=== PATIENT | female | born 1975 | race Hispanic/Latino ===

== ENCOUNTER 2018-10-15 07:14 | Day surgery (SDC) | payer BC, SELFPAY ==
--- OUTSIDE RECORDS SUMMARY | 2018-10-15 07:21 | XMS REPORT ---
:1975 Author Organization eClinicalWorks Care Team Providers Name Role Phone Arya Roxana Provider Role Unavailable Allergies No Known Allergies Problems Problem Type Condition Code Onset Dates Condition Status Problem Vitamin D deficiency E55.9 Active Problem Abnormal thyroid function test R94.6 Active Problem Seasonal allergic rhinitis, J30.2 Active unspecified trigger Problem Hypercholesterolemia E78.00 Active Problem Anemia, unspecified type D64.9 Active Problem Prediabetes R73.03 Active Medications No Known Medications Results No Known Results Summary Purpose eClinicalWorks Submission
--- OUTSIDE RECORDS SUMMARY | 2018-10-15 07:21 | XMS REPORT ---
:1975 Author Organization e[employer]Works Care Team Providers Name Role Phone Arya Roxana Provider Role Unavailable Allergies, Adverse Reactions, Alerts Substance Reaction Event Type penicillin Info Not Available Drug Allergy Amoxicillin Info Not Available Drug Allergy Problems Problem Type Condition Code Onset Dates Condition Status Problem Hypercholesterolemia E78.00 Active Assessment Prediabetes R73.03 Active Problem Prediabetes R73.03 Active Assessment Hypercholesterolemia E78.00 Active Medications Medication Code Code Instructions Start End Status Dosage System Date Date Metamucil [facility] 83548843982 0.52 GM Orally Active 2 capsules Three times a with 8 day ounces of liquid Pravastatin [facility] 59760599418 40 MG Orally Active 1 tablet Sodium Once a day Atorvastatin [facility] 64993377710 10 MG Orally Active 1 tablet Calcium Once a day Biotin [facility] 73252218865 1 MG Orally Active not defined Ferrous Sulfate ND 0 Active not CR defined Phenergan [facility] 14622712544 25 MG/ML Active 1 ml as Injection needed Azithromycin [facility] 55327884221 250 MG Orally Active 2 tablets Once a day on the first day, then 1 tablet daily for 4 days Claritin [facility] [address]-60 Active not defined Multivitamin & ND 47931191356 - Orally Active not Mineral defined Results No Known Results Summary Purpose eClinicalWorks Submission
--- OUTSIDE RECORDS SUMMARY | 2018-10-15 07:21 | XMS REPORT ---
:1975 Author Organization [employer]Works Care Team Providers Name Role Phone Darío Roxana Provider Role Unavailable Allergies No Known Allergies Problems Problem Type Condition Code Onset Dates Condition Status Problem Prediabetes R73.03 Active Problem Hypercholesterolemia E78.00 Active Problem Seasonal allergic rhinitis, J30.2 Active unspecified trigger Medications No Known Medications Results No Known Results Summary Purpose eClinicalWorks Submission
--- OUTSIDE RECORDS SUMMARY | 2018-10-15 07:21 | XMS REPORT ---
:1975 Author Organization e[employer]Works Care Team Providers Name Role Phone Roxana Chanel Provider Role Unavailable Allergies, Adverse Reactions, Alerts Substance Reaction Event Type penicillin Info Not Available Drug Allergy Problems Problem Type Condition Code Onset Dates Condition Status Problem Prediabetes R73.03 Active Problem Hypercholesterolemia E78.00 Active Problem Seasonal allergic rhinitis, J30.2 Active unspecified trigger Assessment Dysuria R30.0 Active Medications Medication Code Code Instructions Start End Status Dosage System Date Date Multivitamin & [facility] 31085019557 - Orally Active not Mineral defined Atorvastatin [facility] 55593056649 10 MG Orally Active 1 tablet Calcium Once a day Atorvastatin [facility] 47601170411 10 MG Orally January 03, Active 1 tablet Calcium Once a day 2017 Phenergan [facility] 90838074861 25 MG/ML Active 1 ml as Injection needed Biotin [facility] 80778973188 1 MG Orally Active not defined Bactrim DS [facility] 89185936809 800-160 MG March 18, Active 1 tablet Orally Twice a 2018 day Pravastatin [facility] 49748746620 40 MG Orally Active 1 tablet Sodium Once a day Claritin [facility] [address]-30 Active not defined Azithromycin [facility] 68884689000 250 MG Orally Active 2 tablets Once a day on the first day, then 1 tablet daily for 4 days Metamucil [facility] 32406086901 0.52 GM Orally Active 2 capsules Three times a with 8 day ounces of liquid Ferrous Sulfate ND 0 Active not CR defined Results Name Result Date Reference Range Unit Abnormality Flag URINALYSIS AUTO W/O SCOPE (83400) ----ANABELLA Trace [id number] ----NIT Negative [id number] ----PROTEIN Negative [id number] ----pH 7.0 [id number] ----GLUCOSE Negative [id number] ----KETONES Negative [id number] ----SPECIFIC GRAVITY 1.020 [id number] ----BLO Negative [id number] Urine Microscopic Reflex Summary Purpose eClinicalWorks Submission
--- OUTSIDE RECORDS SUMMARY | 2018-10-15 07:21 | XMS REPORT ---
:1975 Author Organization eClinicalWorks Care Team Providers Name Role Phone Roxana Koenig Provider Role Unavailable Allergies No Known Allergies Problems Problem Type Condition Code Onset Dates Condition Status Problem Hypercholesterolemia E78.00 Active Problem Prediabetes R73.03 Active Medications Medication Code Code Instructions Start End Status Dosage System Date Date Metamucil [facility] 88516236603 0.52 GM Orally Active 2 capsules Three times a with 8 day ounces of liquid Ferrous Sulfate NDC 0 Active not CR defined Phenergan [facility] 15210709891 25 MG/ML Active 1 ml as Injection needed Pravastatin [facility] 63817486483 40 MG Orally Active 1 tablet Sodium Once a day Biotin [facility] 67777193952 1 MG Orally Active not defined Atorvastatin [facility] 24473210603 10 MG Orally Active 1 tablet Calcium Once a day Azithromycin [facility] 69833219466 250 MG Orally Active 2 tablets Once a day on the first day, then 1 tablet daily for 4 days Atorvastatin [facility] 67758763140 10 MG Orally January 03, Active 1 tablet Calcium Once a day 2017 Claritin [facility] [address]-63 Active not defined Multivitamin & ND 90553578660 - Orally Active not Mineral defined Results No Known Results Summary Purpose eClinicalWorks Submission
--- OUTSIDE RECORDS SUMMARY | 2018-10-15 07:21 | XMS REPORT ---
:1975 Author Organization eClinicalWorks Care Team Providers Name Role Phone Roxana Koenig Provider Role Unavailable Allergies, Adverse Reactions, Alerts Substance Reaction Event Type penicillin Info Not Available Drug Allergy Problems Problem Type Condition Code Onset Dates Condition Status Problem Prediabetes R73.03 Active Problem Hypercholesterolemia E78.00 Active Problem Seasonal allergic rhinitis, J30.2 Active unspecified trigger Assessment URI, acute J06.9 Active Assessment Acute pharyngitis, unspecified J02.9 Active etiology Medications Medication Code Code Instructions Start End Status Dosage System Date Date Bactrim DS [facility] 66189184563 800-160 MG March 18, Active 1 tablet Orally Twice a 2017 day Claritin [facility] [address]-08 Active not defined Phenergan [facility] 89462981122 25 MG/ML Active 1 ml as Injection needed Pravastatin [facility] 41042920389 40 MG Orally Active 1 tablet Sodium Once a day Metamucil [facility] 33891655519 0.52 GM Orally Active 2 capsules Three times a with 8 day ounces of liquid Multivitamin & [facility] 17464760135 - Orally Active not Mineral defined Atorvastatin [facility] 22419704562 10 MG Orally Active 1 tablet Calcium Once a day Azithromycin ND 67007758358 250 MG Orally 2 March 19February Active as tablets on day 2017, directed #1, then 1 2018 tablet once daily thereafter Azithromycin ND 41691846674 250 MG Orally Active 2 tablets Once a day on the first day, then 1 tablet daily for 4 days Atorvastatin ND 68725114882 10 MG Orally January 03, Active 1 tablet Calcium Once a day 2018 Ferrous Sulfate NDC 0 Active not CR defined Biotin ND 20137836031 1 MG Orally Active not defined Results Name Result Date Reference Range Unit Abnormality Flag STREP A RAPID ----Result Negative [id number] Summary Purpose eClinicalWorks Submission
[2018-10-15 07:42] LABS: Specific Gravity 1.025 (1.005-1.030)
[2018-10-15] MEDS ORDERED: Ringers Lactate 1,000 ML IV ONE (07:51)
[2018-10-15] MEDS ORDERED: FENTANYL CITR 100 MCG/2 ML ONE (09:06)
[2018-10-15] MEDS ORDERED: PROPOFOL 200 MG/20 ML VIAL IV ONE ×2 (09:06→10:09)
[2018-10-15] MEDS ORDERED: MIDAZOLAM HCL 2 MG/2 ML INJ ONE (09:07)
[2018-10-15] MEDS: LIDOCAINE 1.5% W/EPI AMP 5 ML ONE ×2 (09:07→10:03)
[2018-10-15] MEDS ORDERED: LIDOCAINE 1% MPF 2 ML AMPULE ONE (09:08)
[2018-10-15] MEDS ORDERED: NA CHLORIDE 0.9% 1,000 ML ONE (09:08)
[2018-10-15] MEDS ORDERED: SILVER NITRATE 1 APPL TOP ONE (09:08)
[2018-10-15] MEDS ORDERED: LIDOCAINE 1.5% W/EPI AMP 5 ML ONE (09:33)
[2018-10-15] MEDS ORDERED: KETOROLAC 30 MG/ML INJ ONE (10:19)
--- NOTE | 2018-10-15 21:12 | OP ---
Date of Procedure: 10/15/2018 Surgeon: Brisa Maldonado MD Preoperative Diagnoses: Menorrhagia, dysmenorrhea, and left adnexal mass. Postoperative Diagnoses: Menorrhagia, dysmenorrhea, and left adnexal mass. Procedures Performed: Hysteroscopy, dilation and curettage. Anesthesia: MAC plus paracervical block. Specimens: Endometrial curettings. Complications: No complications. Drains: None. Condition: Stable. Findings: Endometrium significantly thickened. No intracavitary lesions. Both tubal ostia were vis ualized. Cavity undistorted, slightly retroflexed. Description Of Procedure: After informed consent was verified, the patient was taken back to the OR, placed in a supine fashion on the table. After MAC was given, she was placed in a dorsal lithotomy position using Phoenix stirrups. Pelvic exam performed. Uterus is about 8 weeks size and fullness not ed above the level of the uterus. No distinct mass was palpable. The cul-de-sac assessment was smoo th. Speculum was used to expose the cervix. Anterior lip injected with 1.5% lidocaine mixed with 1: 200,000 epinephrine, 7 cc was injected here. Anterior lip grasped with 2 Allis clamps and speculum p laced in the posterior aspect still and at 4 and 8 o'clock positions, 3 cc each was injected for a pa racervical block. A prep x3 with Betadine was done. SlimLine diagnostic hysteroscope was used to en ter the uterine cavity through the cervical canal under direct vision. The cavity was empty. Thicke krishan endometrium. No intracavitary lesions. Scope pulled out. A #2 endometrial curette used to perf orm curettings and there was a large amount of tissue that was obtained. This was sent out for perma nent pathology. Instruments were removed. Instrument, needle, and sponge counts were done and were correct at the end of the case. The patient tolerated the procedure well. She will follow up with stephanie nolan in 1 week. Estimated Blood Loss: Minimal. RANDY/RAMIRO Voice ID: [id number] Report ID: [id number]
== END 2018-10-15 11:05 | disposition home or self-care (01) ==
LOC: OR 07:14
PROVIDERS: ATTEND Obstetrics & Gynecology
PROC: 0UJD8ZZ Inspection of Uterus and Cervix, Via Natural or Artificial Opening Endoscopic (ICD-10-PCS; 2018-10-15)
PROC: 0UDB7ZX Extraction of Endometrium, Via Natural or Artificial Opening, Diagnostic (ICD-10-PCS; principal; 2018-10-15 09:30)
DX: N92.0 Excessive and frequent menstruation with regular cycle (principal); N94.6 Dysmenorrhea, unspecified; D50.0 Iron deficiency anemia secondary to blood loss (chronic); R10.2 Pelvic and perineal pain; N83.292 Other ovarian cyst, left side; E78.00 Pure hypercholesterolemia, unspecified; Z79.899 Other long term (current) drug therapy
CPT/HCPCS: 81025; 83001; 86304; 88305; J2001; J2250; J2704; J3010; J7030

== ENCOUNTER 2018-12-04 06:00 | Day surgery (SDC) | payer BC, SELFPAY ==
[2018-12-01 11:45] LABS: Urine Appearance CLEAR; Urine Bilirubin NEGATIVE (NEG); Urine Blood 3+ (NEG); Urine Color YELLOW; Urine Glucose NEGATIVE (NEG); Urine Protein NEGATIVE (NEG); Urine Urobilinogen 0.2 mg/dL (0.2-1.0)
[2018-12-01 11:51] LABS: Urine Microscopic Reflex ORDER UMIC
[2018-12-01 11:52] LABS: Absolute Lymphocytes (CBC) 3.3 K/uL (0.7-4.9); Absolute Monocytes 0.6 K/uL (0.1-1.3); Absolute Neutrophil 3.4 K/uL (1.8-8.0); Basophils % 0.7 % (0-1.3); Eosinophils % 2.4 % (0-4.4); Hematocrit 40.6 % (36.0-45.0); MPV 8.5 fL (7.6-11.3); RBC Red Blood Cell Count 4.84 M/uL (3.86-4.86)
[2018-12-01 12:04] LABS: Urine Bacteria <20 /HPF (<20); Urine Culture Reflex Order NOT NEEDED; Urine RBC TNTC /HPF (NONE SEEN)
--- OUTSIDE RECORDS SUMMARY | 2018-12-04 06:02 | XMS REPORT ---
:1975 Author Organization eClinicalWorks Care Team Providers Name Role Phone Roxana Koenig Provider Role Unavailable Allergies No Known Allergies Problems Problem Type Condition Code Onset Dates Condition Status Problem Hypercholesterolemia E78.00 Active Problem Prediabetes R73.03 Active Medications Medication Code Code Instructions Start End Status Dosage System Date Date Metamucil [facility] 10508474827 0.52 GM Orally Active 2 capsules Three times a with 8 day ounces of liquid Ferrous Sulfate NDC 0 Active not CR defined Phenergan [facility] 94279613396 25 MG/ML Active 1 ml as Injection needed Pravastatin [facility] 97009680131 40 MG Orally Active 1 tablet Sodium Once a day Biotin [facility] 57273323069 1 MG Orally Active not defined Atorvastatin [facility] 38240962552 10 MG Orally Active 1 tablet Calcium Once a day Azithromycin [facility] 43829835165 250 MG Orally Active 2 tablets Once a day on the first day, then 1 tablet daily for 4 days Atorvastatin [facility] 35303450114 10 MG Orally January 03, Active 1 tablet Calcium Once a day 2017 Claritin [facility] [address]-65 Active not defined Multivitamin & ND 35556488225 - Orally Active not Mineral defined Results No Known Results Summary Purpose eClinicalWorks Submission
--- OUTSIDE RECORDS SUMMARY | 2018-12-04 06:02 | XMS REPORT ---
[...] Dosage System Date Date Metamucil [facility] 00932655170 0.52 GM Orally Active 2 capsules Three times a with 8 day ounces of liquid Pravastatin [facility] 90911500703 40 MG Orally Active 1 tablet Sodium Once a day Atorvastatin [facility] 92458463906 10 MG Orally Active 1 tablet Calcium Once a day Biotin [facility] 90848262690 1 MG Orally Active not defined Ferrous Sulfate ND 0 Active not CR defined Phenergan [facility] 55957383588 25 MG/ML Active 1 ml as Injection needed Azithromycin [facility] 54943053665 250 MG Orally Active 2 tablets Once a day on the first day, then 1 tablet daily for 4 days Claritin [facility] [address]-33 Active not defined Multivitamin & ND 05736135124 - Orally Active not Mineral defined Results No Known Results Summary Purpose eClinicalWorks Submission
--- OUTSIDE RECORDS SUMMARY | 2018-12-04 06:02 | XMS REPORT ---
[...] Status Dosage System Date Date Multivitamin & [facility] 46570312289 - Orally Active not Mineral defined Atorvastatin [facility] 46782771118 10 MG Orally Active 1 tablet Calcium Once a day Atorvastatin [facility] 18882512605 10 MG Orally January 03, Active 1 tablet Calcium Once a day 2017 Phenergan [facility] 89041724946 25 MG/ML Active 1 ml as Injection needed Biotin [facility] 54333982391 1 MG Orally Active not defined Bactrim DS [facility] 81637798856 800-160 MG March 18, Active 1 tablet Orally Twice a 2018 day Pravastatin [facility] 38644549658 40 MG Orally Active 1 tablet Sodium Once a day Claritin [facility] [address]-90 Active not defined Azithromycin [facility] 86870840693 250 MG Orally Active 2 tablets Once a day on the first day, then 1 tablet daily for 4 days Metamucil [facility] 96680092049 0.52 GM Orally Active 2 capsules Three times a with 8 day ounces of liquid Ferrous Sulfate ND 0 Active not CR defined Results Name Result Date Reference Range Unit Abnormality Flag URINALYSIS AUTO W/O SCOPE (99254) ----ANABELLA Trace [id number] ----NIT Negative [id number] ----PROTEIN Negative [id number] ----pH 7.0 20180318 ----GLUCOSE Negative [id number] ----KETONES Negative [id number] ----SPECIFIC GRAVITY 1.020 20180318 ----BLO Negative [id number] Urine Microscopic Reflex Summary Purpose eClinicalWorks Submission
--- OUTSIDE RECORDS SUMMARY | 2018-12-04 06:03 | XMS REPORT ---
[...] Date Bactrim DS [facility] 49620317902 800-160 MG March 18, Active 1 tablet Orally Twice a 2017 day Claritin [facility] [address]-76 Active not defined Phenergan [facility] 92698594835 25 MG/ML Active 1 ml as Injection needed Pravastatin [facility] 17290874083 40 MG Orally Active 1 tablet Sodium Once a day Metamucil [facility] 78031087943 0.52 GM Orally Active 2 capsules Three times a with 8 day ounces of liquid Multivitamin & [facility] 22838457076 - Orally Active not Mineral defined Atorvastatin [facility] 47203626724 10 MG Orally Active 1 tablet Calcium Once a day Azithromycin ND 03463625596 250 MG Orally 2 March 19February Active as tablets on day 2017, directed #1, then 1 2018 tablet once daily thereafter Azithromycin ND 47627336843 250 MG Orally Active 2 tablets Once a day on the first day, then 1 tablet daily for 4 days Atorvastatin ND 30665186671 10 MG Orally January 03, Active 1 tablet Calcium Once a day 2018 Ferrous Sulfate NDC 0 Active not CR defined Biotin ND 53501225204 1 MG Orally Active not defined Results Name Result Date Reference Range Unit Abnormality Flag STREP A RAPID ----Result Negative [id number] Summary Purpose eClinicalWorks Submission
--- OUTSIDE RECORDS SUMMARY | 2018-12-04 06:03 | XMS REPORT ---
:1975 Author Organization eClinicalWorks Care Team Providers Name Role Phone Roxana Koenig Provider Role Unavailable Allergies, Adverse Reactions, Alerts Substance Reaction Event Type penicillin hives Drug Allergy Problems Problem Type Condition Code Onset Dates Condition Status Assessment Hypercholesterolemia E78.00 Active Assessment Prediabetes R73.03 Active Assessment URI, acute J06.9 Active Assessment Vitamin D deficiency E55.9 Active Assessment Abnormal thyroid function test R94.6 Active Problem Vitamin D deficiency E55.9 Active Problem Abnormal thyroid function test R94.6 Active Problem Seasonal allergic rhinitis, J30.2 Active unspecified trigger Problem Hypercholesterolemia E78.00 Active Problem Anemia, unspecified type D64.9 Active Problem Prediabetes R73.03 Active Medications Medication Code Code Instructions Start End Status Dosage System Date Date Biotin [facility] 39365909230 1 MG Orally Active not defined Bactrim DS [facility] 69700728133 800-160 MG March 18, Active 1 tablet Orally Twice a 2018 day Azithromycin [facility] 32316177169 250 MG Orally Active 2 tablets Once a day on the first day, then 1 tablet daily for 4 days Pravastatin [facility] 99062347457 40 MG Orally Active 1 tablet Sodium Once a day Claritin [facility] [address]-30 Active not defined Multivitamin & [facility] 70118974799 - Orally Active not Mineral defined Atorvastatin [facility] 57175747214 10 MG Orally January 03, Active 1 tablet Calcium Once a day 2017 Atorvastatin [facility] 29575878073 10 MG Orally Active 1 tablet Calcium Once a day Phenergan [facility] 40116126182 25 MG/ML Active 1 ml as Injection needed Metamucil [facility] 04930589639 0.52 GM Orally Active 2 capsules Three times a with 8 day ounces of liquid Ferrous Sulfate NDC 0 Active not CR defined Results No Known Results Summary Purpose eClinicalWorks Submission
[2018-12-04] MEDS ORDERED: Ringers Lactate 1,000 ML IV ONE ×2 (06:19→10:32)
[2018-12-04] MEDS ORDERED: SCOPOLAMINE HYDROBROMIDE PATCH TD ONE (06:19)
[2018-12-04 06:36] LABS: Specific Gravity 1.015 (1.005-1.030)
[2018-12-04] MEDS ORDERED: ROCURONIUM 50 MG/5 ML VIAL IV ONE (07:17)
[2018-12-04] MEDS ORDERED: PROPOFOL 200 MG/20 ML VIAL IV ONE (07:17)
[2018-12-04] MEDS ORDERED: DEXAMETHASONE 10 MG/ML VIAL ONE (07:18)
[2018-12-04] MEDS ORDERED: MIDAZOLAM HCL 2 MG/2 ML INJ ONE (07:18)
[2018-12-04] MEDS ORDERED: LIDOCAINE 2% MPF 5 ML VIAL ONE (07:18)
[2018-12-04] MEDS ORDERED: FENTANYL CITR 250 MCG/5 ML ONE (07:18)
[2018-12-04] MEDS ORDERED: ONDANSETRON 4 MG/2 ML VIAL ONE (07:18)
[2018-12-04] MEDS: CEFAZOLIN/SWI 2gm 2 GM/20 ML SYR ONE ×2 (07:20→07:40)
[2018-12-04] MEDS: Ringers Lactate 1,000 ML IV ONE ×2 (08:47→08:50)
[2018-12-04] MEDS ORDERED: FENTANYL CITR 100 MCG/2 ML ONE (10:05)
[2018-12-04] MEDS ORDERED: KETOROLAC 30 MG/ML INJ ONE (10:08)
[2018-12-04] MEDS ORDERED: IBUPROFEN 200 MG TAB PO ONE (12:16)
[2018-12-04] MEDS ORDERED: IBUPROFEN 400 MG TAB ONE (12:17)
--- NOTE | 2018-12-04 21:42 | OP ---
Date of Procedure: 12/04/2018 Surgeon: Brisa Maldonado MD Pulling Unit Floorhand: Helene Carson. Preoperative Diagnoses: Menorrhagia, dysmenorrhea, left adnexal mass, most likely left ovarian. Postoperative Diagnoses: Menorrhagia, dysmenorrhea, right tubal mass that was cystic. Procedures Performed: Total laparoscopic hysterectomy, bilateral salpingectomy, removal of right tub al mass, pelvic washings, bilateral ovariopexy, and cystoscopy. Anesthesia: General endotracheal. Specimens: Uterus, bilateral tubes, cyst from the right tube that was removed using an EndoCatch bag after being aspirated while the mass was inside the bag and the bag was almost closed when this was done. So uterus, bilateral tubes, mass on the right tube were the specimens. Complications: None. Drains: None. Condition: Stable. Findings: The mass that is about 6 cm was present on the right tube arising from the distal aspect o f the right tube. The fimbriated end was distorted and present on top of the cystic mass. It could be possible that this mass was arising from the area in between the fimbriated end and the ovary. Th e ovary was completely free from the mass. So, the tube was removed first, then the mass was removed . The right tube and ovary were completely unremarkable excepting that both tubes were interrupted f rom her history of tubal ligation. Indications For Procedure: The patient is a 43-year-old with heavy bleeding, originally with anemia. Then, she had improvement with her anemia after treatment. We did an ultrasound on her uterus. Sh e had a left adnexal mass and this appeared to be un-resolving. She had intermittent left-sided pain , bleeding was not controlled with any conservative measures including using Provera. Discussed abou t treatment in the snf with the help of medical treatment. She had an endometrial sampling and since this was no atypia or malignancy, we talked about medical treatment with ablation in conjuncti on with ovarian cystectomy. However, the other option was to perform a hysterectomy with cystectomy. Given the fact that she has more than 1 pathology, the patient wanted to have her uterus out as wel l at this time and the cyst removed, so consented her for laparoscopic hysterectomy, left salpingo-oo phorectomy, and right salpingectomy, if the mass was on the right ovary, we wanted to preserve her ho rmonal function as she is young, and she has no other problems. Her CA-125 was 7, which is normal. No other family history significant for uterine, ovarian, breast or colon cancer. She is 5, para 4, all vaginal deliveries. After consenting here, she was brought to the OR. Description Of Procedure: After informed consent was verified, she was taken back to OR, placed in a supine fashion on the operating table. After general anesthesia was given, she was given 2 g of Anc ef, which were pushed. No evidence of any allergic reaction. SCDs were placed. Arms were tucked by the side. The patient placed in dorsal lithotomy using Phoenix stirrups. Abdomen, vulva, vagina, and perineum were prepped and draped in a sterile fashion. Isabel was placed to drain the bladder and at tached to cysto tubing for retrograde filling and a large VCare was fixed in place. After this was draped, a 1 cm infraumbilical incision was made with a scalpel. There was a lot of sc ar tissue here, and this was incised with a knife and once the fascia was down, then the fascia was i ncised with a knife as well. A 15-blade tagged on each side with 0 Vicryl sutures, was done satisfac tory on the left half of the fascial incision, so plan was to later put a otzsrr-hs-qszum and close i t. The peritoneum was entered bluntly, S retractors placed. Lashon introduced into the peritoneal cavit y. After site of entry was checked, upper abdominal surfaces were visualized, no evidence of any lesions on the liver or in the upper abdomen. Omentum normal. Appendix was visualized and was normal. The adnexal mass appeared to be coming from the left, however, after placing the suprapubic 10 mm and 5 mm left lower quadrant ports, moving the mass aside, I realized that this was from the distal part of the right tube with the area between the right ovary and the right tube. So, plan was to remove the tube and so the ovary, and then remove the cyst. After thorough inspection of the entire pelvic cav ity, no evidence of any endometriosis, both ureteric courses were visualized from the pelvic brim to the ureteric tunnel and were undistorted. We started the dissection by opening of the bladder perito neum in the center and using scissors to dissect on both sides. Bipolar medium tip was used for caut erization of the vessels. The EnSeal device was opened up. The left round ligament was taken down. Then, the peritoneum was o pened up anteriorly and the broad ligament as well. These were all taken down to the level of the ve ssels. Then the clean-out was done in the area of the anterior vaginal wall with the EnSeal. Then, went on to take the mesosalpinx and the left utero-ovarian ligament. Posterior broad ligament was di ssected with the help of the [place] and then cauterized and cut with the EnSeal, all the way to th e distal part of the uterosacral attachment to the apex. On the opposite side, similar dissection wa s performed after skeletonizing the vessels on the left opposite side. The utero-ovarian ligament wa s taken down the mesosalpinx, and tube were taken down. The round ligament was taken down, then the posterior broad ligament all the way to the left until the right uterosacral was taken down. The bro ad ligament was skeletonized with the help of EnSeal. Then, the anterior vaginal wall was cleared of f, vesicovaginal space was entered with the help of the monopolar hook blade, and then the dissection was carried inferiorly. Once the bladder was pushed adequately then we went on to expose the vessel s on the right side. With the help of the monopolar, incision was made parallel and medial to the ve ssels, contiguous to the cervix at the level of the internal os. Here, the bipolar basket tip was us ed to cauterize the vessels in 2 places, and then with the help of the EnSeal was cauterized and cut. Then the cardinal ligaments were also taken down. This was a little hard with the EnSeal; however, this was cauterized with the bipolar basket tip and then cut with scissors. On the opposite side, s imilar dissection was performed taking the vessels down with the help of the bipolar basket to cauter ize then the EnSeal to cauterize, cut. There was an area on the anterior vaginal wall at the level o f the bladder pillar on the left side, but more on the anterior vaginal wall, there was probably a va ginal branch that was bleeding. After dissecting the bladder pillar and pushing it inferiorly past t he cup of the VCare, I was able to control the bleeding on the anterior vaginal wall with the help of the bipolar medium tip. Once this was cauterized, then vessels were taken down with the help of the basket first, and then the EnSeal to cut it. The cardinal ligaments were also taken down with the E nSeal after making a window medially. Circumferential colpotomy was performed with a monopolar hook blade posteriorly. The area between the vaginal wall and the peritoneum was what was bleeding, and t his was cauterized after thorough irrigation and suction with the help of the medium tipped bipolar. Once there was excellent hemostasis all around, no evidence of any electrical, mechanical, or therma l injury to the ureters, then we placed an angle stitch on the left side, then on the right side, and there were simple stitches tied lateral to the angles. Then 3 buryhzh-cg-wodqy were placed through at the areas of the detachment, 1 in the center and 1 each on each side including the distal uterosac ral ligament with the posterior vaginal wall and anterior vaginal wall, and tying it in a buried figu re-of-eight fashion. All these 3 stitches were acyqkwt-mt-qzrpc and they were placed to support as w ell as close the vaginal opening (colpotomy). After good closure was done, thorough irrigation and s uction were performed, the tubes were removed and handed out for permanent pathology. The ovaries we re left alone. However, due to the traction from the large right tubal mass, the ovarian pedicle teodora eared to be elongated excessively, and this could have the ovary scar on top of the colpotomy site, a nd therefore, I decided to perform an ovariopexy. There was a similar dissection issue on the left s chuy as well; however, I thought that it would be beneficial for her ovary to be attached to the dista l part of the dissected round ligament. The 3-0 Vicryl on an SH needle was used and the lower pole o f the ovary was sutured to the lower part of the round ligament with a simple stitch and tied extraco rporeally. Same thing on the right side was done as well. The bowel was retracted with the help of the epiploicae, which were sutured with 3-0 Monocryl and held on the retractor in the left upper quad rant. The retrieval of these suture tips were with the Ke[place], and placed through the left upper quadrant. This was released at the end of the case and there was no evidence of any excessive trauma or traction to the bowel. After this was released, thorough irrigation and suction performed. No evidence of any problems. Then, the trocars were removed after the gas was desufflated. The fa scia at the umbilicus was closed with the help of a fnnzdu-vo-djonn in a buried fashion, then simple 0 Vicryl stitch in the suprapubic area as well on the fascia. Then all skin incisions closed with th e help of 4-0 Vicryl interrupted. The VCare ball, Isabel were removed. Cystoscopy was performed with a 17-Bolivian sheath, 30-degree lens, and normal saline. There were excellent streams of urine from b oth ureteric orifices. No evidence of any trauma to the bladder. No lesions as well. The bladder w as then drained after both of them were well visualized. The vagina was cleaned up. Instrument, nee dle, and sponge counts were done and were correct at the end of the case. The patient tolerated the procedure well. The right tubal cyst was placed in an EndoCatch bag through the suprapubic port, and it was aspirated with the laparoscopic needle before the bag was closed because this specimen would not fit into the 10 mm bag. Once it was drained without any spillage, then I was able to retrieve it , we then closed the bag completely and pull it through the vagina. Please note, pelvic washings wer e also performed at the beginning. Instrument, needle, and sponge counts x3 were correct at the end of the case. The patient tolerated the procedure well. EBL was 100. She will follow up with me in 1 week. RANDY/RAMIRO Voice ID: [id number] Report ID: [id number]
== END 2018-12-04 12:24 | disposition home or self-care (01) ==
LOC: OR 06:00
PROVIDERS: ATTEND Obstetrics & Gynecology
PROC: 0UT74ZZ Resection of Bilateral Fallopian Tubes, Percutaneous Endoscopic Approach (ICD-10-PCS; 2018-12-04)
PROC: 0UQ24ZZ Repair Bilateral Ovaries, Percutaneous Endoscopic Approach (ICD-10-PCS; 2018-12-04)
PROC: 0UT94ZZ Resection of Uterus, Percutaneous Endoscopic Approach (ICD-10-PCS; principal; 2018-12-04 07:30)
DX: N92.0 Excessive and frequent menstruation with regular cycle (principal); N80.0 Endometriosis of uterus; N88.8 Other specified noninflammatory disorders of cervix uteri; D25.9 Leiomyoma of uterus, unspecified; D27.0 Benign neoplasm of right ovary; N83.8 Other noninflammatory disorders of ovary, fallopian tube and broad ligament; D50.0 Iron deficiency anemia secondary to blood loss (chronic); N94.6 Dysmenorrhea, unspecified; E78.5 Hyperlipidemia, unspecified; Z79.899 Other long term (current) drug therapy
CPT/HCPCS: 36415; 81003; 81015; 81025; 85025; 86850; 86900; 86901; 88108; 88305; 88307; J0690; J1100; J2250; J2405; J2704; J3010

== ENCOUNTER 2019-03-17 14:01 | Emergency (ER) | payer BC, SELFPAY ==
--- OUTSIDE RECORDS SUMMARY | 2019-03-17 14:06 | XMS REPORT ---
[...] Status Dosage System Date Date Multivitamin & [facility] 23714086358 - Orally Active not Mineral defined Atorvastatin [facility] 96472337387 10 MG Orally Active 1 tablet Calcium Once a day Atorvastatin [facility] 99049605685 10 MG Orally January 03, Active 1 tablet Calcium Once a day 2017 Phenergan [facility] 81344615198 25 MG/ML Active 1 ml as Injection needed Biotin [facility] 39358904804 1 MG Orally Active not defined Bactrim DS [facility] 17722486502 800-160 MG March 18, Active 1 tablet Orally Twice a 2018 day Pravastatin [facility] 12739651788 40 MG Orally Active 1 tablet Sodium Once a day Claritin [facility] [address]-67 Active not defined Azithromycin [facility] 88565736053 250 MG Orally Active 2 tablets Once a day on the first day, then 1 tablet daily for 4 days Metamucil [facility] 58746926393 0.52 GM Orally Active 2 capsules Three times a with 8 day ounces of liquid Ferrous Sulfate ND 0 Active not CR defined Results Name Result Date Reference Range Unit Abnormality Flag URINALYSIS AUTO W/O SCOPE (59021) ----ANABELLA Trace [id number] ----NIT Negative [id number] ----PROTEIN Negative [id number] ----pH 7.0 [id number] ----GLUCOSE Negative [id number] ----KETONES Negative [id number] ----SPECIFIC GRAVITY 1.020 [id number] ----BLO Negative [id number] Urine Microscopic Reflex Summary Purpose [employer] Submission
--- OUTSIDE RECORDS SUMMARY | 2019-03-17 14:07 | XMS REPORT ---
:1975 Author Organization [employer] Care Team Providers Name Role Phone Roxana Chanel Provider Role Unavailable Allergies No Known Allergies Problems Problem Type Condition Code Onset Dates Condition Status Problem Prediabetes R73.03 Active Problem Vitamin D deficiency E55.9 Active Problem Abnormal thyroid function test R94.6 Active Problem Hypercholesterolemia E78.00 Active Problem Gestational diabetes O24.419 Active Problem Viral infection, unspecified B34.9 Active Problem Prediabetes R73.09 Active Problem Seasonal allergic rhinitis, J30.2 Active unspecified trigger Problem Anemia, unspecified type D64.9 Active Problem Fever, unspecified fever cause R50.9 Active Problem Acute erythematous tonsillitis J03.90 Active Medications Medication Code Code Instructions Start End Date Status Dosage System Date Azithromycin [facility] [place] 19671596231 250 MG Orally February 11, February 16, Active 2 tablets Once a day 2018 2018 on the first day, then 1 tablet daily for 4 days Results No Known Results Summary Purpose [employer] Submission
--- OUTSIDE RECORDS SUMMARY | 2019-03-17 14:07 | XMS REPORT ---
[...] End Status Dosage System Date Date Biotin [facility] 07552291620 1 MG Orally Active not defined Bactrim DS [facility] 99649918690 800-160 MG March 18, Active 1 tablet Orally Twice a 2018 day Azithromycin [facility] 23951360626 250 MG Orally Active 2 tablets Once a day on the first day, then 1 tablet daily for 4 days Pravastatin [facility] 00619170760 40 MG Orally Active 1 tablet Sodium Once a day Claritin [facility] [address]-28 Active not defined Multivitamin & [facility] 83658878777 - Orally Active not Mineral defined Atorvastatin [facility] 75028187593 10 MG Orally January 03, Active 1 tablet Calcium Once a day 2017 Atorvastatin [facility] 39811529703 10 MG Orally Active 1 tablet Calcium Once a day Phenergan [facility] 67047730981 25 MG/ML Active 1 ml as Injection needed Metamucil [facility] 49414998192 0.52 GM Orally Active 2 capsules Three times a with 8 day ounces of liquid Ferrous Sulfate NDC 0 Active not CR defined Results No Known Results Summary Purpose [employer] Submission
--- OUTSIDE RECORDS SUMMARY | 2019-03-17 14:07 | XMS REPORT ---
:1975 Author Organization [employer]Works Care Team Providers Name Role Phone Nida Curtis Provider Role Unavailable Allergies No Known Allergies [...] Problem Acute erythematous tonsillitis J03.90 Active Medications No Known Medications Results No Known Results Summary Purpose [employer] Submission
--- OUTSIDE RECORDS SUMMARY | 2019-03-17 14:07 | XMS REPORT ---
[...] Status Dosage System Date Date Bactrim DS [facility] 78945702163 800-160 MG March 18, Active 1 tablet Orally Twice a 2017 day Claritin [facility] [address]-08 Active not defined Phenergan [facility] 04494717605 25 MG/ML Active 1 ml as Injection needed Pravastatin [facility] 09011278823 40 MG Orally Active 1 tablet Sodium Once a day Metamucil [facility] 15959114686 0.52 GM Orally Active 2 capsules Three times a with 8 day ounces of liquid Multivitamin & [facility] 15014005707 - Orally Active not Mineral defined Atorvastatin [facility] 53278865128 10 MG Orally Active 1 tablet Calcium Once a day Azithromycin ND 62350684662 250 MG Orally 2 March 19February Active as tablets on day 2017, directed #1, then 1 2018 tablet once daily thereafter Azithromycin ND 24290638894 250 MG Orally Active 2 tablets Once a day on the first day, then 1 tablet daily for 4 days Atorvastatin ND 49986256740 10 MG Orally January 03, Active 1 tablet Calcium Once a day 2018 Ferrous Sulfate NDC 0 Active not CR defined Biotin ND 01531283496 1 MG Orally Active not defined Results Name Result Date Reference Range Unit Abnormality Flag STREP A RAPID ----Result Negative [id number] Summary Purpose [employer]Works Submission
--- OUTSIDE RECORDS SUMMARY | 2019-03-17 14:07 | XMS REPORT ---
:1975 Author Organization [employer]Works Care Team Providers Name Role Phone Ever Nida Provider Role Unavailable Allergies, Adverse Reactions, Alerts Substance Reaction Event Type penicillin hives Drug Allergy Problems Problem Type Condition Code Onset Dates Condition Status Problem Prediabetes R73.03 Active Problem Vitamin D deficiency E55.9 Active Problem Abnormal thyroid function test R94.6 Active Assessment Fever, unspecified fever cause R50.9 Active Assessment Acute erythematous tonsillitis J03.90 Active Problem Hypercholesterolemia E78.00 Active Problem Gestational diabetes O24.419 Active Problem Viral infection, unspecified B34.9 Active Problem Prediabetes R73.09 Active Problem Seasonal allergic rhinitis, J30.2 Active unspecified trigger Problem Anemia, unspecified type D64.9 Active Problem Fever, unspecified fever cause R50.9 Active Problem Acute erythematous tonsillitis J03.90 Active Medications Medication Code Code Instructions Start End Status Dosage System Date Date Ferrous Sulfate ND 0 Active not CR defined Multivitamin & [facility] 33798665044 - Orally Active not Mineral defined Phenergan [facility] 96986807713 25 MG/ML Active 1 ml as Injection needed Azithromycin [facility] 60987404974 250 MG Orally Active 2 tablets Once a day on the first day, then 1 tablet daily for 4 days Metamucil [facility] 62176060334 0.52 GM Orally Active 2 capsules Three times a with 8 day ounces of liquid Bactrim DS [facility] 85799185560 800-160 MG March 18, Active 1 tablet Orally Twice a 2018 day Claritin [facility] [address]-04 Active not defined Biotin ND 76532882199 1 MG Orally Active not defined Medrol [facility] 58935376448 4 MG Orally Active as directed Pravastatin ND 42786871093 40 MG Orally Active 1 tablet Sodium Once a day Vanacof DM [facility] 08481778994 February 09January Active 10 ml MG/15ML Orally 2018, every 6-8 2019 hours Atorvastatin ND 88778877006 10 MG Orally Active 1 tablet Calcium Once a day Results Name Result Date Reference Range Unit Abnormality Flag STREP A RAPID ----Result Negative [id number] Summary Purpose [employer]ClinicalWorks Submission
[2019-03-17] MEDS ORDERED: NA CHLORIDE 0.9% 1,000 ML ONE (14:34)
[2019-03-17] MEDS ORDERED: PROMETHAZINE 25 MG/ML VIAL ONE (14:34)
[2019-03-17 14:44] LABS: Absolute Lymphocytes (CBC) 1.8 K/uL (0.7-4.9); Basophils % 0.5 % (0-1.3); Hematocrit 42.4 % (36.0-45.0); Lymphocytes % 19.2 % (15.3-44.8); MPV 8.3 fL (7.6-11.3); RBC Red Blood Cell Count 4.89 M/uL (3.86-4.86)
[2019-03-17 15:04] LABS: ALT/SGPT 32 U/L (12-78); AST/SGOT 23 U/L (15-37); Albumin 3.6 g/dL (3.4-5.0); Alkaline Phosphatase 86 U/L (45-117); BUN Blood Urea Nitrogen 8 mg/dL (7-18); Bicarbonate 23 mmol/L (21-32); Bilirubin Direct < 0.1 mg/dL (0-0.2); Bilirubin Total 0.3 mg/dL (0.2-1.0); Glucose Level 89 mg/dL (74-106); Lipase 194 U/L (73-393); Potassium 3.9 mmol/L (3.5-5.1); Protein, Total 7.8 g/dL (6.4-8.2); Sodium Level 137 mmol/L (136-145)
--- NOTE | 2019-03-17 15:42 | EDPHYS ---
Physician Documentation [facility] Name: Monique Garcia Age: 43 yrs Sex: Female : 1975 Arrival Date: 03/17/2019 Time: 14:05 Bed 30 Private MD: ED Physician Edward Mcmahan HPI: 03/17 14:16 This 43 yrs old Female presents to ER via Ambulatory with complaints of snw Vomiting. 14:16 The patient presents to the emergency department with nausea, that is moderate, snw vomiting, 6 times since the onset of symptoms. Onset: The symptoms/episode began/occurred suddenly, and became persistent. Possible causes: unknown. The symptoms are aggravated by food , The symptoms are alleviated by nothing. Associated signs and symptoms: The patient has no apparent associated signs or symptoms, Pertinent negatives: constipation, diarrhea, dysuria, fever. Severity of symptoms: At their worst the symptoms were moderate. The patient has not experienced similar symptoms in the past. The patient has not recently seen a physician. 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 - Social history:: Smoking status: Patient/guardian denies using tobacco. - Ebola Screening: : Patient denies exposure to infectious person Patient denies travel to an Ebola-affected area in the 21 days before illness onset. ROS: 14:16 Constitutional: Negative for fever, chills, and weight loss, Eyes: Negative for injury, snw pain, redness, and discharge, ENT: Negative for injury, pain, and discharge, Neck: Negative for injury, pain, and swelling, Cardiovascular: Negative for chest pain, palpitations, and edema, Respiratory: Negative for shortness of breath, cough, wheezing, and pleuritic chest pain, Back: Negative for injury and pain, : Negative for injury, bleeding, discharge, and swelling, MS/Extremity: Negative for injury and deformity, Skin: Negative for injury, rash, and discoloration, Neuro: Negative for headache, weakness, numbness, tingling, and seizure, Psych: Negative for depression, anxiety, suicide ideation, homicidal ideation, and hallucinations. 14:16 Abdomen/GI: Positive for nausea, vomiting. Exam: 14:16 Constitutional: This is a well developed, well nourished patient who is awake, alert, snw and in no acute distress. Head/Face: Normocephalic, atraumatic. Eyes: Pupils equal round and reactive to light, extra-ocular motions intact. Lids and lashes normal. Conjunctiva and sclera are non-icteric and not injected. Cornea within normal limits. Periorbital areas with no swelling, redness, or edema. ENT: Nares patent. No nasal discharge, no septal abnormalities noted. Tympanic membranes are normal and external auditory canals are clear. Oropharynx with no redness, swelling, or masses, exudates, or evidence of obstruction, uvula midline. Mucous membranes moist. Neck: Trachea midline, no thyromegaly or masses palpated, and no cervical lymphadenopathy. Supple, full range of motion without nuchal rigidity, or vertebral point tenderness. No Meningismus. Chest/axilla: Normal chest wall appearance and motion. Nontender with no deformity. No lesions are appreciated. Cardiovascular: Regular rate and rhythm with a normal S1 and S2. No gallops, murmurs, or rubs. Normal PMI, no JVD. No pulse deficits. Respiratory: Lungs have equal breath sounds bilaterally, clear to auscultation and percussion. No rales, rhonchi or wheezes noted. No increased work of breathing, no retractions or nasal flaring. Abdomen/GI: Soft, non-tender, with normal bowel sounds. No distension or tympany. No guarding or rebound. No evidence of tenderness throughout. Back: No spinal tenderness. No costovertebral tenderness. Full range of motion. Skin: Warm, dry with normal turgor. Normal color with no rashes, no lesions, and no evidence of cellulitis. MS/ Extremity: Pulses equal, no cyanosis. Neurovascular intact. Full, normal range of motion. Neuro: Awake and alert, GCS 15, oriented to person, place, time, and situation. Cranial nerves II-XII grossly intact. Motor strength 5/5 in all extremities. Sensory grossly intact. Cerebellar exam normal. Normal gait. Psych: Awake, alert, with orientation to person, place and time. Behavior, mood, and affect are within normal limits. Vital Signs: 14:10 BP 141 / 72; Pulse 70; Resp 15; Temp 97.4(TE); Pulse Ox 98% on R/A; Weight 88.45 kg; ss Height 5 ft. 3 in. (160.02 cm); Pain 0/10; 14:43 BP 128 / 67; Pulse 71; Resp 18; Pulse Ox 100% on R/A; Pain 0/10; mg2 16:10 BP 110 / 70; Pulse 70; Resp 18; Temp 98; Pulse Ox 100% on R/A; Pain 0/10; mg2 14:10 Body Mass Index 34.54 (88.45 kg, 160.02 cm) ss MDM: 14:13 Patient medically screened. snw 15:42 Data reviewed: vital signs, nurses notes. Data interpreted: Pulse oximetry: on room air snw is 100 %. Interpretation: normal. Counseling: I had a detailed discussion with the patient and/or guardian regarding: the historical points, exam findings, and any diagnostic results supporting the discharge/admit diagnosis, lab results, the need for outpatient follow up, to return to the emergency department if symptoms worsen or persist or if there are any questions or concerns that arise at home. Response to treatment: the patient's symptoms have markedly improved after treatment, patient is well hydrated. Special discussion: Based on the history and exam findings, there is no indication for further emergent testing or inpatient evaluation. I discussed with the patient/guardian the need to see the primary care provider for further evaluation of the symptoms. 16:08 ED course: discussed urine findings with pt and told her if the culture grew bacteria snw she would be notified within 72 hours of the need to begin antibiotics. 03/17 14:11 Order name: Basic Metabolic Panel snw 03/17 14:11 Order name: CBC with Diff snw 03/17 14:11 Order name: Hepatic Function; Complete Time: 15:16 snw 03/17 14:11 Order name: Lipase; Complete Time: 15:16 snw 03/17 14:11 Order name: Urine Microscopic Only; Complete Time: 16:03 snw 03/17 14:14 Order name: Basic Metabolic Panel; Complete Time: 15:16 EDMS 03/17 14:11 Order name: IV Saline Lock; Complete Time: 14:40 snw 03/17 14:11 Order name: Labs collected and sent; Complete Time: 14:40 sn 03/17 14:14 Order name: CBC with Automated Diff; Complete Time: 14:58 [facility] 03/17 14:40 Order name: Urine Dipstick--Ancillary (enter results) bd 03/17 15:55 Order name: Urine Culture [facility] 03/17 14:11 Order name: Urine Dipstick-Ancillary (obtain specimen); Complete Time: 14:39 snw Administered Medications: 14:39 Drug: NS 0.9% 1000 ml Route: IV; Rate: 1 bolus; Site: right forearm; mg2 16:00 Follow up: Response: No adverse reaction; IV Status: Completed infusion; IV Intake: mg2 1000ml 14:40 Drug: Phenergan 12.5 mg Route: IVP; Site: right forearm; mg2 16:00 Follow up: Response: No adverse reaction; Marked relief of symptoms mg2 Disposition: 17:01 Co-signature as Attending Physician, Edward Mcmhaan MD I agree with the assessment and kdr plan of care. Disposition: 03/17/19 15:41 Discharged to Home. Impression: Vomiting, unspecified. - Condition is Stable. - Discharge Instructions: Clear Liquid Diet, Adult, Nausea and Vomiting, Adult, Hand Washing, Rehydration, Adult. - Prescriptions for Zofran 4 mg Oral Tablet - take 1 tablet by ORAL route every 12 hours As needed; 20 tablet. - Work release form, Medication Reconciliation Form, Thank You Letter, Antibiotic Education, Prescription Opioid Use form. - Follow up: Private Physician; When: 2 - 3 days; Reason: Recheck today's complaints, Continuance of care, Re-evaluation by your physician. Follow up: Emergency Department; When: As needed; Reason: Worsening of condition. Signatures: Dispatcher [employer] [facility] Edward Mcmahan MD MD kdr Therrien, Shelly, PHARMACEUTICAL SPECIALTY REPRESENTATIVE-C PHARMACEUTICAL SPECIALTY REPRESENTATIVE-Feiw Tasha Palumbo RN RN Pastor Fontanez RN RN mg2 Corrections: (The following items were deleted from the chart) 14:12 14:11 Urine Test ordered. snw snw 16:11 15:41 03/17/2019 15:41 Discharged to Home. Impression: Vomiting, unspecified. Condition mg2 is Stable. Discharge Instructions: Clear Liquid Diet, Adult, Nausea and Vomiting, Adult, Hand Washing, Rehydration, Adult. Prescriptions for Zofran 4 mg Oral Tablet - take 1 tablet by ORAL route every 12 hours As needed; 20 tablet. and Forms are Work release form, Medication Reconciliation Form, Thank You Letter, Antibiotic Education, Prescription Opioid Use. Follow up: Private Physician; When: 2 - 3 days; Reason: Recheck today's complaints, Continuance of care, Re-evaluation by your physician. Follow up: Emergency Department; When: As needed; Reason: Worsening of condition. snw
--- NOTE | 2019-03-17 15:42 | ER ---
Nurse's Notes [facility] Name: Monique Garcia Age: 43 yrs Sex: Female : 1975 Arrival Date: 03/17/2019 Time: 14:05 Bed 30 Private MD: Diagnosis: Vomiting, unspecified Presentation: 03/17 14:08 Presenting complaint: Patient states: Woke up with nausea at 0530 this morning. Pt ss reports she has vomited 6 times since the nausea began. Transition of care: patient was not received from another setting of care. Onset of symptoms was March 17, 2019. Risk Assessment: Do you want to hurt yourself or someone else? Patient reports no desire to harm self or others. Initial Sepsis Screen: Does the patient meet any 2 criteria? No. Patient's initial sepsis screen is negative. Does the patient have a suspected source of infection? No. Patient's initial sepsis screen is negative. Care prior to arrival: None. 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 - Social history:: Smoking status: Patient/guardian denies using tobacco. - Ebola Screening: : Patient denies exposure to infectious person Patient denies travel to an Ebola-affected area in the 21 days before illness onset. Screenin:43 Abuse screen: Denies threats or abuse. Denies injuries from another. Nutritional mg2 screening: No deficits noted. Tuberculosis screening: No symptoms or risk factors identified. Fall Risk IV access (20 points). Assessment: 14:40 General: Appears in no apparent distress. comfortable, Behavior is calm, cooperative. mg2 Pain: Denies pain. Neuro: Level of Consciousness is awake, alert, obeys commands, Oriented to person, place, time. Cardiovascular: Capillary refill < 3 seconds Patient's skin is warm and dry. Respiratory: Airway is patent Respiratory effort is even, unlabored, Respiratory pattern is regular, symmetrical. GI: Reports nausea, vomiting, since 0530 this morning. : Urine is pls see urine dip result. EENT: No signs and/or symptoms were reported regarding the EENT system. Derm: Skin is intact, is healthy with good turgor, Skin is pink, warm \T\ dry. normal. Musculoskeletal: Circulation, motion, and sensation intact. Capillary refill < 3 seconds. 16:10 Reassessment: Patient denies pain at this time. Patient states feeling better. Patient mg2 states symptoms have improved. Vital Signs: 14:10 BP 141 / 72; Pulse 70; Resp 15; Temp 97.4(TE); Pulse Ox 98% on R/A; Weight 88.45 kg; ss Height 5 ft. 3 in. (160.02 cm); Pain 0/10; 14:43 BP 128 / 67; Pulse 71; Resp 18; Pulse Ox 100% on R/A; Pain 0/10; mg2 16:10 BP 110 / 70; Pulse 70; Resp 18; Temp 98; Pulse Ox 100% on R/A; Pain 0/10; mg2 14:10 Body Mass Index 34.54 (88.45 kg, 160.02 cm) ED Course: 14:05 Patient arrived in ED. as 14:09 Triage completed. ss 14:10 Arm band placed on right wrist. ss 14:12 Ainsley Watt FNP-C [facility]. snw 14:12 Edward Mcmahan MD is Attending Physician. snw 14:13 Pastor Carballo RN is Primary Nurse. mg2 14:43 Patient has correct armband on for positive identification. Pulse ox on. NIBP on. Door mg2 closed. Warm blanket given. 14:43 No provider procedures requiring assistance completed. Inserted saline lock: 20 gauge mg2 in right forearm, using aseptic technique. Blood collected. 16:10 IV discontinued, intact, bleeding controlled, No redness/swelling at site. Pressure mg2 dressing applied. Administered Medications: 14:39 Drug: NS 0.9% 1000 ml Route: IV; Rate: 1 bolus; Site: right forearm; mg2 16:00 Follow up: Response: No adverse reaction; IV Status: Completed infusion; IV Intake: mg2 1000ml 14:40 Drug: Phenergan 12.5 mg Route: IVP; Site: right forearm; mg2 16:00 Follow up: Response: No adverse reaction; Marked relief of symptoms mg2 Intake: 16:00 IV: 1000ml; Total: 1000ml. mg2 Outcome: 15:41 Discharge ordered by MD. bruner 16:11 Discharged to home ambulatory, with family. mg2 16:11 Condition: stable 16:11 Discharge instructions given to patient, Instructed on discharge instructions, follow up and referral plans. medication usage, Demonstrated understanding of instructions, follow-up care, medications, Prescriptions given X 1. 16:11 Patient left the ED. mg2 Signatures: Ainsley Watt, BELT REPAIRER-C BELT REPAIRER-Zulay Dwyer Shelby, RN RN ss Pastor Carballo RN RN mg2
[2019-03-17 15:53] LABS: Urine Bacteria 20-50 /HPF (<20); Urine Culture Reflex Order REFLEXED; Urine Mucus 1+ /HPF (NONE SEEN); Urine RBC <5 /HPF (NONE SEEN)
[2019-03-17 16:59] LABS: Urine Blood 1+ (NEG); Urine Glucose NEGATIVE (NEG); Urine Protein TRACE (NEG); Urine Specific Gravity >1.030 (1.005-1.030)
== END 2019-03-17 16:11 | disposition home or self-care (01) ==
LOC: ER 14:01
DX: R11.2 Nausea with vomiting, unspecified (principal); Z88.0 Allergy status to penicillin; E78.00 Pure hypercholesterolemia, unspecified
CPT/HCPCS: 36415; 80048; 80076; 81003; 81015; 83690; 85025; 87086; 87088; 96361; 96374; 99284; J2550; J7030